=== PATIENT | female | born 1970 | race Caucasian/White ===

== ENCOUNTER → 2021-12-01 | Day surgery (SDC) | payer OTHER ==
[~2021-12-01] VITALS: Ht 172.7 cm; Wt 66.2 kg
[~2021-12-01] MED LIST: COQ-10100 MG PO; D3-200050 MCG PO; OS-CAL500 MG PO
[2021-12-01 08:40] LABS: HGB 14.1 g/dl (12.5-16.0); MCHC 32.8 g/dL (32.0-36.0); MCV 97.7 fL (78.0-100.0); MPV 10.4 fL (6.0-9.5); RBC 4.4 M/uL (4.20-5.40); RDW 12.9 % (11.5-14.0); WBC 10.4 K/uL (4.0-10.5)
[2021-12-01 08:58] LABS: ALBUMIN 3.7 g/dL (3.4-5.0); BILIRUBIN - TOTAL 0.3 mg/dL (0.2-1.0); BUN/CREAT RATIO (CALC) 16.5 RATIO; CREATININE 0.79 mg/dL (0.51-0.95); GLOBULIN (CALCULATION) 3.2 g/dL; POTASSIUM 3.7 mmol/L (3.5-5.1); TOTAL PROTEIN 6.9 g/dL (6.4-8.2)
== END | disposition home or self-care (01) ==
LOC: FAS 07:59
PROVIDERS: Surgery
DX: Z12.11 Encounter for screening for malignant neoplasm of colon (principal); D12.6 Benign neoplasm of colon, unspecified; K62.1 Rectal polyp; F17.210 Nicotine dependence, cigarettes, uncomplicated
CPT/HCPCS: 36415; 80053; J2704; J7120

== ENCOUNTER 2021-12-24 20:26 | Emergency (ER) | payer OTHER | END 2021-12-24 22:07 | disposition home or self-care (01) | LOC: FER 20:26 | DX: S01.81XA Laceration without foreign body of other part of head, initial encounter (principal); J44.9 Chronic obstructive pulmonary disease, unspecified; F17.210 Nicotine dependence, cigarettes, uncomplicated; Z88.6 Allergy status to analgesic agent; W01.0XXA Fall on same level from slipping, tripping and stumbling without subsequent striking against object, initial encounter; Y92.009 Unspecified place in unspecified non-institutional (private) residence as the place of occurrence of the external cause | CPT/HCPCS: 70450 ==

== ENCOUNTER → 2022-03-06 | Day surgery (SDC) | payer OTHER ==
[~2022-03-06] VITALS: Ht 172.7 cm; Wt 68.0 kg
[~2022-03-06] MED LIST changes: +HYDROCODON-ACE1 EAC2 PO; +ROXICODONE5 MG PO; +TURMERIC500 M2 PO
== END | disposition home or self-care (01) ==
LOC: FAS 08:57
DX: I87.2 Venous insufficiency (chronic) (peripheral) (principal); C20 Malignant neoplasm of rectum; K29.50 Unspecified chronic gastritis without bleeding; K29.80 Duodenitis without bleeding; B96.81 Helicobacter pylori [H. pylori] as the cause of diseases classified elsewhere; K20.90 Esophagitis, unspecified without bleeding; J43.9 Emphysema, unspecified
CPT/HCPCS: 71045; 76000; C1788; J0690; J1170; J1644; J2250; J3010; J7120